=== PATIENT | male | born 1970 | race American Indian/Alaskan Native ===

== ENCOUNTER 2017-06-22 17:44 | Emergency (ER) | payer MEDICAID, OTHER ==
[2017-06-22] MEDS ORDERED: Ketorolac 30 MG/ML SDV IM ONE (19:27)
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
[2017-06-22 19:46] VITALS: BP 138/75
== END 2017-06-22 19:47 | disposition home or self-care (01) ==
LOC: DL.ED 17:44
DX: S06.0X0A Concussion without loss of consciousness, initial encounter (principal); S01.81XA Laceration without foreign body of other part of head, initial encounter; Y04.0XXA Assault by unarmed brawl or fight, initial encounter; S06.0X9A Concussion with loss of consciousness of unspecified duration, initial encounter; X58.XXXA Exposure to other specified factors, initial encounter
CPT/HCPCS: 70450; 70486; 96372; 99283; J1885

== ENCOUNTER 2018-05-28 18:39 | Emergency (ER) | payer MEDICAID, OTHER ==
[2018-05-28 19:38] VITALS: BP 151/85
--- NOTE | 2018-05-28 21:23 | EDM.PDOC ---
ED HPI GENERAL MEDICAL PROBLEM - General Chief Complaint: ENT Problem Stated Complaint: TOOTH PAIN [id number] Time Seen by Provider: 05/28/18 21:18 Source of Information: Reports: Patient History Limitations: Reports: No Limitations - History of Present Illness INITIAL COMMENTS - FREE TEXT/NARRATIVE: Filling left upper molar fell out 2 days ago, increased pain tonight upper jaw and cheek . No fever or chills. Left Oral/Mouth Pain Score (Numeric/FACES): 10 - Related Data Allergies Allergy/AdvReac Type Severity Reaction Status Date / Time No Known Allergies Allergy Verified 05/28/18 19:34 Home Meds: Home Meds Naproxen 250 mg PO BID 05/28/18 [History] Past Medical History HEENT History: Reports: None Cardiovascular History: Reports: None Respiratory History: Reports: None Gastrointestinal History: Reports: None Genitourinary History: Reports: None Musculoskeletal History: Reports: Back Pain, Chronic, Other (See Below) Other Musculoskeletal History: herniated disc in lower back Neurological History: Reports: None Psychiatric History: Reports: None Endocrine/Metabolic History: Reports: None Hematologic History: Reports: None Immunologic History: Reports: None Oncologic (Cancer) History: Reports: None Dermatologic History: Reports: None - Infectious Disease History Infectious Disease History: Reports: None - Past Surgical History Head Surgeries/Procedures: Reports: None Social & Family History - Family History Family Medical History: Noncontributory - Tobacco Use Smoking Status *Q: Current Every Day Smoker Years of Tobacco use: 10 Packs/Tins Daily: 0.2 - Caffeine Use Caffeine Use: Reports: Coffee - Recreational Drug Use Recreational Drug Use: No ED ROS ENT - Review of Systems Review Of Systems: ROS reveals no pertinent complaints other than HPI. ED EXAM, ENT - Physical Exam Exam: See Below Exam Limited By: No Limitations General Appearance: Alert, Mild Distress Eye Exam: Bilateral Eye: EOMI Ears: Normal External Exam Nose: Normal Inspection Mouth/Throat: Dental Pain, Other (dental decay, open cavity and tenderness left upper 2nd molar. ) Neck: Normal Inspection Respiratory/Chest: No Respiratory Distress, Lungs Clear Cardiovascular: Normal Peripheral Pulses, Regular Rate, Rhythm GI/Abdominal: Normal Bowel Sounds, Soft ED ENT PROCEDURES - Additional/Other Procedure(s) Other (Free Text) Procedure(s): dental cement packing to left upper #15 anteriolater aspect, open cavity. Course - Vital Signs Last Recorded V/S: Last Vital Signs Temp 98.1 F 05/28/18 19:37 Pulse 88 05/28/18 19:37 Resp 15 05/28/18 19:37 BP 151/85 H 05/28/18 19:37 Pulse Ox 98 05/28/18 19:37 - Orders/Labs/Meds Meds: Medications Discontinued Medications Generic Name Dose Route Start Last Admin Trade Name Hayley PRN Reason Stop Dose Admin Amoxicillin Confirm 05/28/18 21:26 05/28/18 21:30 Amoxil Administered 05/28/18 21:27 Not Given Dose 1,000 mg .ROUTE .STK-MED ONE Departure - Departure Time of Disposition: 21:23 Disposition: Home, Self-Care 01 Condition: Good Clinical Impression: Dental caries, Pain, dental - Discharge Information *PRESCRIPTION DRUG MONITORING PROGRAM REVIEWED*: No Instructions: Dental Abscess, [id number] Referrals: PCP,None [Primary Care Provider] - Forms: ED Department Discharge Additional Instructions: avoid chewing on left side room temperature liquids anbesol to tooth area alternate tylenol 650mg with ibuprofen 600mg every 4 hours as needed follow up with dentist on Wednesday
[2018-05-28] MEDS ORDERED: Amoxicillin 500 MG Cap ONE (21:26)
== END 2018-05-28 21:29 | disposition home or self-care (01) ==
LOC: DL.ED 18:39
DX: K02.9 Dental caries, unspecified (principal); F17.210 Nicotine dependence, cigarettes, uncomplicated
CPT/HCPCS: 99282

== ENCOUNTER 2018-06-07 13:57 | Emergency (ER) | payer MEDICAID ==
[2018-06-07 14:06] VITALS: BP 150/106
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
== END 2018-06-07 14:30 | disposition home or self-care (01) ==
LOC: DL.ED 13:57
DX: K02.9 Dental caries, unspecified (principal); K04.7 Periapical abscess without sinus
CPT/HCPCS: 99282; 99283

== ENCOUNTER → 2019-03-09 | Outpatient (CLI) | payer MEDICAID, OTHER ==
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
== END ==
LOC: DL.CT 13:21
PROVIDERS: ATTEND General Practice
DX: M54.9 Dorsalgia, unspecified (principal); G89.29 Other chronic pain; M47.816 Spondylosis without myelopathy or radiculopathy, lumbar region; M48.061 Spinal stenosis, lumbar region without neurogenic claudication
CPT/HCPCS: 72131

== ENCOUNTER 2020-09-17 21:31 | Emergency (ER) | payer MEDICAID ==
[2020-09-17 21:43] VITALS: BP 145/95; PULSE 104
[2020-09-17] MEDS ORDERED: Acetaminophen 325 MG Tab PO ONE (22:12)
--- NOTE | 2020-09-17 22:24 | EDM.PDOC ---
ED HPI GENERAL MEDICAL PROBLEM - General Chief Complaint: Respiratory Problem Stated Complaint: 97.1 * TEMP SHORTNESS OF BREATH, COVID POSSIBLE Time Seen by Provider: 09/17/20 21:40 Source of Information: Reports: Patient, RN History Limitations: Reports: No Limitations - History of Present Illness INITIAL COMMENTS - FREE TEXT/NARRATIVE: Exposed to COVID, In cell x 2 days, both cell mates positive. Just released 30" prior, notices some congestion feels lke fever and SOB. No nausea vomiting, No body aches. No loss of taste or smell. Tested 09/14 and was negative, Girlfriend was positive few weeks ago. - Related Data Allergies Allergy/AdvReac Type Severity Reaction Status Date / Time No Known Allergies Allergy Verified 09/17/20 21:43 Home Meds: Home Meds . [No Known Home Meds] 09/17/20 [History] Past Medical History - Past Health History Medical/Surgical History: Denies Medical/Surgical History HEENT History: Reports: None Cardiovascular History: Reports: None Respiratory History: Reports: None Gastrointestinal History: Reports: None Genitourinary History: Reports: None Musculoskeletal History: Reports: Back Pain, Chronic, Other (See Below) Other Musculoskeletal History: herniated disc in lower back Neurological History: Reports: None Psychiatric History: Reports: None Endocrine/Metabolic History: Reports: None Hematologic History: Reports: None Immunologic History: Reports: None Oncologic (Cancer) History: Reports: None Dermatologic History: Reports: None - Infectious Disease History Infectious Disease History: Reports: None - Past Surgical History Head Surgeries/Procedures: Reports: None Social & Family History - Family History Family Medical History: No Pertinent Family History - Tobacco Use Tobacco Use Status *Q: Current Every Day Tobacco User Years of Tobacco use: 20 Packs/Tins Daily: 0.1 Second Hand Smoke Exposure: Yes - Caffeine Use Caffeine Use: Reports: Coffee - Recreational Drug Use Recreational Drug Use: Yes Drug Use in Last 12 Months: Yes Recreational Drug Type: Reports: Marijuana/Hashish ED ROS GENERAL - Review of Systems Review Of Systems: See Below Constitutional: Reports: Fever, Malaise HEENT: Reports: No Symptoms Respiratory: Reports: Shortness of Breath. Denies: Cough Cardiovascular: Reports: No Symptoms GI/Abdominal: Reports: No Symptoms Musculoskeletal: Reports: No Symptoms Skin: Reports: No Symptoms Neurological: Reports: No Symptoms ED EXAM, GENERAL - Physical Exam Exam: See Below Exam Limited By: No Limitations General Appearance: Alert, Mild Distress Eye Exam: Bilateral Eye: EOMI Ears: Normal External Exam, Normal TMs Nose: Normal Inspection Throat/Mouth: Normal Inspection Head: Atraumatic, Normocephalic Neck: Normal Inspection, Supple, Full Range of Motion Respiratory/Chest: No Respiratory Distress, Lungs Clear, Normal Breath Sounds Cardiovascular: Normal Peripheral Pulses, Regular Rate, Rhythm GI/Abdominal: Normal Bowel Sounds, Soft Back Exam: Normal Inspection Extremities: Normal Inspection, Normal Range of Motion Neurological: Alert, Oriented, Normal Cognition, Normal Gait Psychiatric: Normal Affect, Normal Mood Skin Exam: Warm, Intact, Normal Color, Diaphoretic Course - Vital Signs Last Recorded V/S: Last Vital Signs Temp 98 F 09/17/20 21:37 Pulse 104 H 09/17/20 21:37 Resp 18 09/17/20 21:37 BP 145/95 H 09/17/20 21:37 Pulse Ox 97 09/17/20 21:37 - Orders/Labs/Meds Orders: Active Orders 24 hr Category Date Time Status CORONAVIRUS COVID-19 PCR [facility] 09/17/20 22:01 Received Meds: Medications Discontinued Medications Generic Name Dose Route Start Last Admin Trade Name Freq PRN Reason Stop Dose Admin Acetaminophen 650 mg 09/17/20 22:12 09/17/20 22:17 Tylenol PO 09/17/20 22:13 650 mg NOW ONE Administration Departure - Departure Time of Disposition: 22:18 Disposition: Home, Self-Care 01 Condition: Good Clinical Impression: Close exposure to COVID-19 virus - Discharge Information *PRESCRIPTION DRUG MONITORING PROGRAM REVIEWED*: No *COPY OF PRESCRIPTION DRUG MONITORING REPORT IN PATIENT ANDERSON: No Instructions: COVID-19 Frequently Asked Questions, Prevent the Spread of COVID- 19 if You Are Sick - [facility] Referrals: PCP,None [Primary Care Provider] - Forms: ED Department Discharge Additional Instructions: tylenol 650mg every 4 hours as needed for fever/ discomfort increase fluids diet as tolerated limit exposure to others, quarantine 14 days over counter supportive measures for cough or congestion urgent follow up difficulty breathing severe cough Sepsis Event Note (ED) - Evaluation Sepsis Screening Result: No Definite Risk - Focused Exam Vital Signs: Vital Signs Temp Pulse Resp BP Pulse Ox 09/17/20 21:37 98 F 104 H 18 145/95 H 97 - My Orders Last 24 Hours: My Active Orders 09/17/20 22:01 CORONAVIRUS COVID-19 PCR [facility] Urgent - Assessment/Plan Last 24 Hours: My Active Orders 09/17/20 22:01 CORONAVIRUS COVID-19 PCR [facility] Urgent
== END 2020-09-17 22:25 | disposition home or self-care (01) ==
LOC: DL.ED 21:31
DX: R06.02 Shortness of breath (principal); R50.9 Fever, unspecified; R53.81 Other malaise; F17.210 Nicotine dependence, cigarettes, uncomplicated; Z20.828 Contact with and (suspected) exposure to other viral communicable diseases
CPT/HCPCS: 87635; 99284; A9270; U0002

== ENCOUNTER 2021-10-20 22:14 | Emergency (ER) | payer SELFPAY ==
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
[2021-10-20 20:08] LABS: ANION GAP 16.2 mEq/L (7-13); CHLORIDE,CL 108 mmol/L (98-107); SODIUM,NA 148 mmol/L (136-145)
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
[~2021-10-20 22:14] MED LIST: Lactated Ringers 1,000 ML IV ONE; Lidocaine 1% 30 ML SDV INJECT ONE
[2021-10-20] MEDS ORDERED: Succinylcholine 200 MG/10 ML MDV IV ONE (22:15)
[2021-10-20] MEDS ORDERED: Rocuronium 100 MG/10 ML MDV IV ONE (22:15)
[2021-10-20] MEDS ORDERED: propofoL 100 ML IV ONE (22:15)
[2021-10-20] MEDS ORDERED: Propofol 200 MG/20 ML SDV IV ONE (22:15)
== END 2021-10-20 22:23 ==
LOC: DL.ED 22:14
DX: S21.111A Laceration without foreign body of right front wall of thorax without penetration into thoracic cavity, initial encounter (principal); S27.1XXA Traumatic hemothorax, initial encounter; W45.8XXA Other foreign body or object entering through skin, initial encounter
CPT/HCPCS: 31500; 32551; 36415; 71045; 71250; 74176; 80053; 80307; 85025; 99285; J0330; J2704; J7120

== ENCOUNTER 2022-03-21 12:07 | Emergency (ER) | payer SELFPAY ==
[2022-03-21 12:53] VITALS: BP 159/127; PULSE 91
[2022-03-21 13:25] LABS: ANION GAP 16.4 mEq/L (7-13); CHLORIDE,CL 107 mmol/L (98-107); SODIUM,NA 146 mmol/L (136-145)
[2022-03-21] MEDS ORDERED: Lactated Ringers 1,000 ML IV ONE (13:55)
[2022-03-21 15:47] LABS: AMPHETAMINES,URINE NEGATIVE (NEGATIVE); BARBITURATES,URINE NEGATIVE (NEGATIVE); BENZODIAZEPINE,URINE NEGATIVE (NEGATIVE); MDMA (ECSTASY), URINE NEGATIVE (NEGATIVE); METHADONE,URINE NEGATIVE (NEGATIVE); METHAMPHETAMINES,URINE NEGATIVE (NEGATIVE); OPIATES,URINE NEGATIVE (NEGATIVE); OXYCODONE,URINE NEGATIVE (NEGATIVE); PHENCYCLIDINE,URINE NEGATIVE (NEGATIVE); TCA,URINE NEGATIVE (NEGATIVE)
== END 2022-03-21 16:15 | disposition home or self-care (01) ==
LOC: DL.ED 12:07
DX: F10.920 Alcohol use, unspecified with intoxication, uncomplicated (principal); F12.10 Cannabis abuse, uncomplicated
CPT/HCPCS: 36415; 80048; 80305; 80307; 81001; 85025; 96360; 99285; J7120

== ENCOUNTER 2023-03-18 03:53 | Emergency (ER) | payer SELFPAY ==
[2023-03-18] MEDS ORDERED: Cephalexin 500 MG Cap PO ONE (05:13)
[2023-03-18 05:41] VITALS: BP 117/97; PULSE 66
== END 2023-03-18 05:29 | disposition home or self-care (01) ==
LOC: DL.ED 03:53
DX: S61.210A Laceration without foreign body of right index finger without damage to nail, initial encounter (principal); S61.212A Laceration without foreign body of right middle finger without damage to nail, initial encounter; W25.XXXA Contact with sharp glass, initial encounter; Y92.009 Unspecified place in unspecified non-institutional (private) residence as the place of occurrence of the external cause
CPT/HCPCS: 12004; 73130-RT; 99283; A9270-GY

== ENCOUNTER 2023-05-11 02:12 | Emergency (ER) | payer SELFPAY ==
[2023-05-11 02:19] VITALS: BP 157/89; PULSE 87
[2023-05-11] MEDS ORDERED: Sodium Chloride 0.9% 10 ML Syringe FLUSH PRN (02:19)
[2023-05-11] MEDS ORDERED: Ketorolac 30 MG/ML SDV IVPUSH ONE (02:19)
[2023-05-11 02:53] LABS: A/G RATIO 0.9; ALBUMIN 3.5 g/dL (3.4-5.0); BILIRUBIN TOTAL 1.1 mg/dL (0.2-1.0); BUN/CREATININE RATIO 18.9 (No establ ref range); CALCIUM 8.8 mg/dL (8.5-10.1); CREATININE 0.95 mg/dL (0.70-1.30); EST CRCL DRUG DOSING (CG) 94.99 mL/min; PROTEIN TOTAL,TP 7.4 g/dL (6.4-8.2)
[2023-05-11] MEDS ORDERED: Aspirin 81 MG Tab.Chew PO ONE (02:59)
[2023-05-11] MEDS ORDERED: Clopidogrel 75 MG Tab PO ONE (02:59)
[2023-05-11] MEDS ORDERED: Enoxaparin 100 MG/1 ML Syringe SUBCUT ONE (02:59)
[2023-05-11] MEDS ORDERED: Naloxone 2 MG/2 ML Syringe IVPUSH STA (03:10)
[2023-05-11 03:11] LABS: BASOPHILS PERCENT AUTO 0.3 % (0.0-1.0); EOSINOPHILS PERCENT AUTO 2.9 % (1.0-3.0); HEMATOCRIT 41.8 % (40.0-54.0); MEAN CORPUSCULAR HEMOGLOBIN 31.3 pg (27.0-34.0); MEAN CORPUSCULAR HGB CONC 33.5 g/dL (33.0-35.0); MEAN CORPUSCULAR VOLUME 93.3 fL (80-100); MONOCYTES PERCENT AUTO 8.3 % (2-8); NEUTROPHILS PERCENT AUTO 74.5 % (42.2-75.2); PLATELET COUNT,PLT 206 10^3/uL (150-450); RED BLOOD CELL COUNT 4.48 10^6/uL (4.6-6.2)
[2023-05-11] MEDS ORDERED: Potassium Chloride 10 MEQ Tab.ER PO ONE (03:24)
== END 2023-05-11 05:36 ==
LOC: DL.ED 02:12
DX: I21.4 Non-ST elevation (NSTEMI) myocardial infarction (principal); E87.6 Hypokalemia; F15.10 Other stimulant abuse, uncomplicated; F17.210 Nicotine dependence, cigarettes, uncomplicated
CPT/HCPCS: 36415; 71045; 80053; 80307; 83735; 84484; 85025; 93005; 93010; 96372; 96374; 96375; 99291; 99291-25; A9270-GY; J1650; J1885; J2310; J3490

== ENCOUNTER 2023-05-29 20:46 | Emergency (ER) | payer OTHER ==
[2023-05-29] MEDS ORDERED: Sodium Chloride 0.9% 10 ML Syringe FLUSH PRN (20:48)
[2023-05-29 21:01] LABS: BASOPHILS PERCENT AUTO 0.5 % (0.0-1.0); EOSINOPHILS PERCENT AUTO 2.4 % (1.0-3.0); HEMOGLOBIN 14.7 g/dL (14.0-18.0); LYMPHOCYTES PERCENT AUTO 34.4 % (20.5-50.1); MEAN CORPUSCULAR HEMOGLOBIN 31.1 pg (27.0-34.0); MEAN CORPUSCULAR HGB CONC 33.4 g/dL (33.0-35.0); MONOCYTES PERCENT AUTO 5.8 % (2-8); NEUTROPHILS PERCENT AUTO 56.9 % (42.2-75.2); PLATELET COUNT,PLT 288 10^3/uL (150-450); RED BLOOD CELL COUNT 4.73 10^6/uL (4.6-6.2); WHITE BLOOD CELL COUNT,WBC 6.2 10^3/uL (5.0-10.0)
[2023-05-29 21:05] VITALS: BP 146/90; PULSE 67
[2023-05-29 21:31] LABS: A/G RATIO 0.8; ALANINE AMINOTRANSFERASE,ALT 17 U/L (16-63); ALBUMIN 3.5 g/dL (3.4-5.0); ALKALINE PHOSPHATASE 126 U/L (46-116); AMYLASE 48 U/L (25-115); ANION GAP 15.3 mEq/L (7-13); ASPARTATE AMNIOTRANSFERASE,AST 23 U/L (15-37); BILIRUBIN TOTAL 0.4 mg/dL (0.2-1.0); BLOOD UREA NITROGEN,BUN 9 mg/dL (7-18); BUN/CREATININE RATIO 9.4 (No establ ref range); CARBON DIOXIDE,CO2 26 mmol/L (21-32); CHLORIDE,CL 108 mmol/L (98-107); CREATININE 0.96 mg/dL (0.70-1.30); GLUCOSE RANDOM 108 mg/dL (70-99); LIPASE 92 U/L (73-393); MAGNESIUM 2.3 mg/dL (1.8-2.4); POTASSIUM,K 3.3 mmol/L (3.5-5.1); PROTEIN TOTAL,TP 7.9 g/dL (6.4-8.2); SODIUM,NA 146 mmol/L (136-145)
[2023-05-29 21:36] LABS: ESTIMATED GFR 95 mL/min (>=60)
[2023-05-29 21:37] LABS: C-REACTIVE PROTEIN < 0.2 mg/dL (0.0-0.9); ETHANOL BLOOD MEDICAL 347 mg/dL (0)
== END 2023-05-29 23:37 | disposition home or self-care (01) ==
LOC: DL.ED 20:46
DX: R07.9 Chest pain, unspecified (principal); F10.920 Alcohol use, unspecified with intoxication, uncomplicated; Y90.8 Blood alcohol level of 240 mg/100 ml or more
CPT/HCPCS: 36415; 80053; 80307; 82150; 83690; 83735; 84484; 85025; 86140; 93005; 93010; 99284; 99285; J3490

== ENCOUNTER 2025-04-16 07:25 | Day surgery (SDC) | payer MEDICAID ==
[2025-04-16] MEDS ORDERED: Lidocaine 2% 20 ML MDV NERVRT ONE (07:26)
[2025-04-16] MEDS ORDERED: Lactated Ringers 1,000 ML IV ONE (07:26)
[2025-04-16] MEDS ORDERED: Glycopyrrolate 0.2 MG/ML 2 ML SDV IV ONE (07:26)
[2025-04-16] MEDS ORDERED: Propofol 200 MG/20 ML SDV IV ONE (07:26)
[2025-04-16] MEDS: Lactated Ringers 1,000 ML IV SCH (07:54)
[2025-04-16] MEDS ORDERED: Propofol 200 MG/20 ML SDV ONE (08:53)
[2025-04-16] MEDS ORDERED: Lidocaine 1% 30 ML SDV ONE (08:54)
[2025-04-16 10:08] VITALS: BP 119/76; PULSE 70
== END 2025-04-16 10:29 | disposition home or self-care (01) ==
LOC: DL.ENDO 07:25
PROVIDERS: ATTEND Internal Medicine Gastroenterology
DX: Z12.11 Encounter for screening for malignant neoplasm of colon (principal); K64.8 Other hemorrhoids; E66.09 Other obesity due to excess calories; Z68.36 Body mass index [BMI] 36.0-36.9, adult; Z87.891 Personal history of nicotine dependence
CPT/HCPCS: J2003; J2704; J3490; J7120